=== PATIENT | female | born 1975 | race Caucasian/White ===

== ENCOUNTER 2016-11-02 14:58 | Emergency (ER) | payer OTHER ==
[~2016-11-02] VITALS: Ht 167.6 cm; Wt 97.7 kg
[~2016-11-02 14:58] MED LIST: ADVAIR 250/501 DISK IH; ADVAIR 500/501 DISK IH; ALBUTEROL17 GM IH; AMBIEN5 MG PO; AMITRIPTYLINE150 MG PO; ASPIR-LOW81 MG PO; ATARAX10 MG PO; BENADRYL25 MG PO; DOCUSATE SODIU100 MG PO; ENDOCET 5-3251 EACH PO; ESCITALOPRAM OX20 MG PO; FLEXERIL10 MG PO; IBUPROFEN400 MG PO; IBUPROFEN800 MG PO; LEVAQUIN500 MG PO; MELOXICAM7.5 MG PO; MICRONASE2.5 MG PO; MICRONASE5 MG PO; MORPHINE SULFAT15 M1 PO; NASONEX17 GM BOTH NARES; NASONEX17 GM NS; NEURONTIN300 MG PO; OMEPRAZOLE40 M1 PO; OXYCODONE-APAP1 EAC6 PO; PERCOCET 10/1 TABLET PO; PILOCARPINE HCL5 MG PO; PRAVASTATIN; PREDNISONE5 MG PO; PRENATABS RX T1 EACH PO; PROMETHAZINE HC25 M1 PO; PROVENTIL,2.5 MG/3 M IH; RITALIN20 MG PO; ROXICODONE5 MG PO; SEPTRA DS TABL1 EACH PO; SINGULAIR10 MG PO; ULTRAM50 MG PO; VENTOLIN HFA18 GM IH; XANAX0.5 MG PO; ZANTAC150 MG; ZANTAC150 MG PO; ZYRTEC10 M2 PO; [UNRECOGNIZED DRUG - OTHER] PO
[2016-11-02] MEDS ORDERED: WELLBUTRIN XL300 MG PO (15:39)
[2016-11-02] MEDS ORDERED: NAPROXEN250 MG PO (15:40)
[2016-11-02 16:57] LABS: HEMATOCRIT 40.5 % (36.0-46.0); MCH 27.6 PG (29.0-34.0); MCHC 32.1 G/DL (30.0-36.0); MEAN PLAT.VOLUME 9.1 uM^3 (9.5-12.4); PLATELET COUNT 362 K/uL (156-360); RBC DIS.WIDTH-CV 13.4 % (11.8-14.6); RBC DIS.WIDTH-SD 41.7 % (39-53); RED BLOOD COUNT 4.71 M/uL (3.80-5.20); WHITE BLOOD COUNT 14.1 K/uL (4.1-10.2)
[2016-11-02 18:09] LABS: CHLORIDE 103 mEq/L (99-109); POTASSIUM 4.1 mEq/L (3.7-5.4); SODIUM 139 mEq/L (136-147)
[2016-11-02 18:11] LABS: GLUCOSE 113 mg/dL (70-99)
[2016-11-02 18:13] LABS: ANION GAP 12 MEQ/L (2-14); TOTAL BILIRUBIN 0.2 mg/dL (0.0-1.0)
[2016-11-02 18:15] LABS: ALKALINE PHOSPHATASE 85 IU/L (3-129); GFR ESTIMATE (CALCULATED) > 59 mL/min/
[2016-11-02 18:16] LABS: UREA NITROGEN (BUN) 15 mg/dL (9-23)
[2016-11-02 18:18] LABS: LIPASE 18 U/L (1.0-51.0)
[2016-11-02 18:32] LABS: QUANTITATIVE HCG < 4.0 MIU/ML
[2016-11-02] MEDS ORDERED: FLAGYL500 MG PO (20:35)
[2016-11-02] MEDS ORDERED: CIPRO500 MG PO (20:35)
[2016-11-02] MEDS ORDERED: ZOFRAN ODT4 MG PO (20:35)
[2016-11-02] MEDS ORDERED: BACTRIM,SEPT1 TABLET PO (20:54)
[2016-11-02 21:14] VITALS: BP 126/89
== END 2016-11-02 21:15 | disposition home or self-care (01) ==
LOC: EME 14:58
PROVIDERS: Physician Assistant
DX: K52.9 Noninfective gastroenteritis and colitis, unspecified (principal); Z88.7 Allergy status to serum and vaccine; Z88.1 Allergy status to other antibiotic agents; F17.200 Nicotine dependence, unspecified, uncomplicated
CPT/HCPCS: 74177; 80053; 81003; 83630; 83690; 84702; 85027; 87177; 87493; 87506; 93005; 99281; 99284; J2270; J2405; J3010; J7030